=== PATIENT | male | born 1965 ===

== ENCOUNTER 2021-04-20 16:31 | Emergency (ER) | payer SELFPAY ==
[~2021-04-20] VITALS: Ht 162.6 cm; Wt 90.7 kg
[2021-04-20 16:43] VITALS: BP 146/87
== END 2021-04-20 18:10 | disposition left against medical advice (07) ==
LOC: EDBD 16:31 → ER 17:32
DX: R07.89 Other chest pain (principal); Z53.21 Procedure and treatment not carried out due to patient leaving prior to being seen by health care provider; V43.62XA Car passenger injured in collision with other type car in traffic accident, initial encounter; Y93.89 Activity, other specified; Y92.410 Unspecified street and highway as the place of occurrence of the external cause; Y99.8 Other external cause status